=== PATIENT | male | born 1940 | race Caucasian/White ===

== ENCOUNTER 2016-12-17 09:30 | Emergency (ER) | payer OTHER, MEDICARE ==
[~2016-12-17] VITALS: Ht 180.3 cm; Wt 100.7 kg
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
[2016-12-17] MEDS ORDERED: VALSARTAN-HCTZ1 EAC2 PO (10:18)
[2016-12-17] MEDS ORDERED: SIMVASTATIN20 M2 PO (10:18)
[2016-12-17] MEDS ORDERED: PROBIOTIC1 EACH PO (10:18)
[2016-12-17] MEDS ORDERED: TOPROL XL25 M1 PO (10:18)
[2016-12-17] MEDS ORDERED: VICODIN 5-3001 EACH PO (10:39)
[2016-12-17 10:46] VITALS: BP 118/80
== END 2016-12-17 10:47 ==
LOC: ERH 09:30
DX: S20.211A Contusion of right front wall of thorax, initial encounter (principal); W01.0XXA Fall on same level from slipping, tripping and stumbling without subsequent striking against object, initial encounter; Y93.01 Activity, walking, marching and hiking; Y92.9 Unspecified place or not applicable
CPT/HCPCS: 71100-RT